=== PATIENT | female | born 1995 | race Caucasian/White ===

== ENCOUNTER 2024-04-19 08:35 | Outpatient (OUT) | payer OTHER, SELFPAY ==
--- NOTE | 2024-04-19 14:34 | PC.NURSE ---
Naif Orr and 11 day old Dede arrive for support. Parents report thought everything was going well except her weight is not changing and my nipples are still sore Infant crying on arrival, rooting. Weight obtained at 2895gms naked. Diapered at 2910 gms. to mom and and to breast. Mom had good positioning and hand placement for latch. Baby very responsive to latching and quickly grabs nipple and begins suckling. Shallow latch noted and repeated 2 times. Infant repositioned and LC assists in bringing deeper onto breast, quicker motion to maximize wide gape infant has. Mom now aware of deep comfortable latch. States no latches have felt pain free since delivery. Nipples are bruised, misshapen (lipstick) after shallow latch, after deep latch noted to be rounded. Mom able to practice latches in football hold and is able to independently latch baby well. Dad takes pictures and short video of improved latching and feeding. Reviewed nipple care. Reviewed use of pump, flange fit and use of nursing aids, such as pillows for support. Will continue to offer expressed milk after each effort at breast 15-30 ml. Discussed infant will obtain more milk with deeper latch. Encouraged to feed baby on demand - every 1-3 hours - versus clock watching every 3 hours. Parents states that is a relief, sometimes she just acts hungry and it has been 1.5-2 hours since last feed Encouraged to feed baby as she cues , no longer than 3 hours between feeds. Verbalized understanding. weight after feeding and weight increased 2990 gms. Parents pleased with progress. Flange fit at 21 mm left side and 22mm right side. Discussed use of flange inserts to adapt current flanges. Verbalized understanding. Naif very attentive and supportive of Dominga's efforts. Dad does diaper changes and burping today. Parents will return 04/23/2024 for continued support. Family leaves ambulatory feeling more confident in ability to manage .
== END 2024-04-19 14:30 | disposition home or self-care (01) ==
LOC: FBCO 08:41
PROVIDERS: Visit Provider Obstetrics & Gynecology
DX: Z39.1 Encounter for care and examination of lactating mother (principal)

== ENCOUNTER 2024-04-30 08:35 | Outpatient (OUT) | payer OTHER, SELFPAY ==
--- NOTE | 2024-04-30 16:07 | PC.NURSE ---
Dominga and 3 week old Dede arrive for support with grandma arriving with them. Dominga states life with a is better and feeding is going so much better . Reports nipples are nearly completely healed as infant is latching well every time and has figured out which pump setting are best for her. Baby Dede weight obtained and is up to 7-4. Previous weight 6-11.5. Dominga very pleased with weight gain. Places baby to breast independently, deep latch , no discomfort noted. Baby feeds 17/15 and releases breast by herself. Burps well and is content after feed. Dominga asks about pacifiers and bottle nipples for baby. discussed use of cone shaped paci and bottle nipples to aid in open relaxed jaw for nursing vs. clamping at narrow base of either paci or bottle nipples. Verbalized understanding. Dominga aware of [facility] group next Tuesday, Aware to call as needed, no follow up appointment needed at this time. Leaves ambulatory for home.
== END 2024-04-30 16:18 | disposition home or self-care (01) ==
LOC: FBCO 08:37
PROVIDERS: Visit Provider Obstetrics & Gynecology
DX: Z39.1 Encounter for care and examination of lactating mother (principal)